=== PATIENT | female | born 1985 | race African-American/Black ===

== ENCOUNTER 2019-12-11 06:46 | Emergency (ER) | payer OTHER ==
[2019-12-11 07:27] VITALS: BP 120/62; PULSE 83; TEMP 97; BMI 45.3
--- NOTE | 2019-12-11 07:57 | PDOC ---
History of Present Illness - General Chief Complaint: ,Possible Stated Complaint: ABD AND VAGINA PAIN Time Seen by Provider: 12/11/19 07:35 History Source: Patient Exam Limitations: Other (psychiatric/developmental delay/poor historian) - History of Present Illness Initial Comments: Pt is a 34 yo F, with PMH of bipolar, developmental delay, prior polysubstance use (cocaine, cannabis), who is presenting with "feeling " and vaginal bleeding x2 days. Pt states she "feels something in my belly," but denies current sexual activity. Pt endorses vaginal bleeding consistent with her normal menstrual cycles, but cannot remember when her LMP was, and she does not take control. Pt denies any fevers/chills, headache, vision changes, syncope, chest pain, palpitations, SOB, nausea/vomiting, abdominal pain, urinary symptoms, diarrhea/constipation, vaginal discharge, or leg swelling. Allergies: NKDA PCP: Dr. Esparza Social: Pt denies any current cigarette, alcohol, or drug use. Pt is currently undomiciled. Pt denies any recent travel or sick contacts. Surgical: no relevant history. Family: no relevant history. 12/11/19 07:52 Past History - Travel History Traveled outside of the country in the last 30 days: No Close contact w/someone who was outside of country & ill: No - Medical History Allergies/Adverse Reactions: Allergies Allergy/AdvReac Type Severity Reaction Status Date / Time peanut Allergy Mild Itching Unverified 12/11/19 07:27 Home Medications: Ambulatory Orders Aripiprazole [Abilify -] 20 mg PO DAILY #30 tablet 06/23/17 Escitalopram Oxalate [Lexapro -] 20 mg PO DAILY #30 tablet 06/23/17 traZODone HCL [Trazodone HCl] 100 mg PO BID #60 tablet 06/23/17 Asthma: Yes COPD: No GI Disorders: Yes (GERD) - Reproductive History Is Patient Now?: (unknown) - Psycho-Social/Smoking History Smoking History: Current every day smoker Have you smoked in the past 12 months: Yes Number of Cigarettes Smoked Daily: 5 Cigars Per Day: 0 Information on smoking cessation initiated: No Review of Systems - Review of Systems Able to Perform ROS?: Yes Is the patient limited Surinamese proficient: No Constitutional: Yes: Weight Stable. No: Chills, Diaphoresis, Fever, Loss of Appetite, Malaise, Weakness HEENTM: No: Recent change in vision, Nose Congestion, Throat Pain, Throat Swelling, Difficulty Swallowing Respiratory: No: Cough, Orthopnea, Shortness of Breath Cardiac (ROS): No: Chest Pain, Edema, Irregular Heart Rate, Lightheadedness, Palpitations, Syncope, Chest Tightness ABD/GI: No: Constipated, Diarrhea, Nausea, Poor Appetite, Poor Fluid Intake, Vomiting, Abdominal cramping : Yes: See HPI. No: Burning, Dysuria, Frequency, Flank Pain, Pain, Urgency Musculoskeletal: No: Back Pain, Joint Pain Integumentary: No: Rash Neurological: No: Headache, Numbness, Weakness, Unsteady Gait, Dizziness Psychiatric: No: Sleep Pattern Change, Change in Appetite Endocrine: No: Increased Urine, Change in Weight Hematologic/Lymphatic: No: Anemia, Blood Clots, Easy Bleeding, Easy Bruising All Other Systems: Reviewed and Negative *Physical Exam - Vital Signs Last Vital Signs Temp Pulse Resp BP Pulse Ox 97 F L 83 18 120/62 99 12/11/19 07:22 12/11/19 07:22 12/11/19 07:22 12/11/19 07:22 12/11/19 07:22 - Physical Exam Vitals stable, pt afebrile. Pt in NAD, morbidly obese body habitus. Pt alert and oriented x3. Pt tangential but redirectable, answers most questions appropriately, but cannot recall more detail oriented answers. Poor insight into medical conditions. wirer street light generally intact, muscular strength and sensation intact. No midline spinal tenderness, step-offs, or crepitus. Head normocephalic, atraumatic. Eyes PERRLA, EOMI. Oropharynx without erythema or exudates, no LAD b/l. No nasal congestion. Hearing intact. Clear heart sounds, S1/S2, no JVD, b/l pedal edema, or heart murmur. Clear lung sounds, no respiratory distress, wheezes, crackles, or accessory muscle use. No abdominal or CVA tenderness to palpation, no rebound, no guarding. Abdomen soft, non-distended, and with normoactive bowel sounds. Skin without jaundice or rash. 12/11/19 07:57 Medical Decision Making - Medical Decision Making Pt was seen at bedside, also will be seen by attending Dr. Alba. Pt presenting requesting test, despite denying current/recent sexual activity. Pt is tangential and easily angered by staff, but is not at imminent risk to self or others. Vaginal bleeding may be at time of normal menstrual cycle. If , will evaluate for vs ectopic. Pt declined any pain control at this time. Will provide vaginal pads for pt. Will continue to reassess pt and monitor for symptomatic improvement. 12/11/19 08:01 test negative. UA without infection. Security on site as pt has been verbally aggressive with multiple staff members and was asked repeatedly to stay with confines of room and wear mask (due to COVID precautions in ER) Pt declined pelvic exam by ER staff. Pt safe for d/c to home with PCP and OB f/u. Symptoms likely 2/2 menstrual cycle. Strict return precautions provided with PCP f/u. 12/11/19 10:16 Discharge - Discharge Information Problems reviewed: Yes Clinical Impression/Diagnosis: Vaginal bleeding, test negative Condition: Stable Disposition: HOME - Admission No - Follow up/Referral Referrals: Ant Esparza MD [Primary Care Provider] - Akua Dunn MD [Staff Physician] - - Patient Discharge Instructions Patient Printed Discharge Instructions: DI for Vaginal Bleeding Additional Instructions: You were seen in the ER today for a test. The results of your labs today showed a negative test and your urine did not have an infection. You did not wish to have a pelvic exam performed by ER staff today. Please follow-up with your primary care doctor and OB-SALES REPRESENTATIVE within 1-2 days to discuss your visit and make sure your symptoms have improved. Please return to the ER if you have any pain, vaginal bleeding that soaks through 1-2 pads per hour, development of fevers or chills, loss of consciousness, inability to tolerate food or fluids, or any other concerns. - Post Discharge Activity
[2019-12-11 08:43] LABS: HCG,QUALITATIVE URINE Negative
[2019-12-11 09:27] LABS: PH,URINE 5.5 (5.0-8.0); URINE APPEARANCE Clear; URINE BILIRUBIN Negative (NEGATIVE); URINE COLOR Yellow; URINE GLUCOSE (UA) Negative (NEGATIVE); URINE KETONE Negative (NEGATIVE); URINE LEUK ESTERASE Negative (NEGATIVE); URINE NITRITE Negative (NEGATIVE); URINE PROTEIN Negative (NEGATIVE); URINE UROBILINOGEN 0.2 mg/dL (0.2-1.0)
--- NOTE | 2019-12-11 09:55 | PDOC ---
Documentation entered by Jayda Huerta SCRIBE, acting as scribe for Stephanie Alba MD. Stpehanie Alba MD: This documentation has been prepared by the Deanna crocker Sydney, SCRIBE, under my direction and personally reviewed by me in its entirety. I confirm that the documentation accurately reflects all work, treatment, procedures, and medical decision making performed by me. Attending Attestation - Resident Resident Name: Celine Pierre - ED Attending Attestation I have performed the following: I have examined & evaluated the patient, The case was reviewed & discussed with the resident, I agree w/resident's findings & plan, Exceptions are as noted - HPI HPI: 12/11/19 08:46 Patient is a 34 year old female with a significant past medical history of bipolar disorder, developmental delay, substance abuse who presents to the ED with two days of baginal bleeding. As per patient, she feels something in her belly and notes vaginal bleeding consistent with her menstrual cycle. Patient reports no current sexual activity, cannot remember her last menstrual period, and is not on control. Denies fevers, chills, headache, chest pain, shortness of breath, nausea, vomiting, or any urinary symptoms. Allergies: NKDA PCP: Dr. Esparza - Physicial Exam PE: 12/11/19 09:17 Agree with resident exam. Patient is alert and oriented and in no acute distres s. She is ambulatory in the ED with normal gait. Abdomen is obese, non tender, non distended. - Medical Decision Making 12/11/19 09:19 Pt presents to the ED requesting test and complaining of "a funny feeling" in her abdomen, although she denies pain. U preg and UA are negative. patient then became tearful and requested serum test. Patient compl ained of vaginal itching to nurse but denied symptoms to resident and refused pelvic exam unless "an OUTREACH LIAISON can be called in emergently". I have explained to the patient at length that these requests are not appropriate, and that she should follow up with her PCP and with [employer] [facility] COUNTER MANAGER. Patient is now requesting discharge home. Will discharge home with instructions to return to the ED for worsening symptoms. 12/11/19 09:48 Discharge - Discharge Information Problems reviewed: Yes Clinical Impression/Diagnosis: Vaginal bleeding, test negative Condition: Stable Disposition: HOME - Follow up/Referral Referrals: Ant Esparza MD [Primary Care Provider] - Akua Dunn MD [Staff Physician] - - Patient Discharge Instructions Patient Printed Discharge Instructions: DI for Vaginal Bleeding Additional Instructions: You were seen in the ER today for a test. The results of your labs today showed a negative test and your urine did not have an infection. You did not wish to have a pelvic exam performed by ER staff today. Please follow-up with your primary care doctor and OB-[employer] SALES COUNTER MANAGER within 1-2 days to discuss your visit and make sure your symptoms have improved. Please return to the ER if you have any pain, vaginal bleeding that soaks through 1-2 pads per hour, development of fevers or chills, loss of consciousness, inability to tolerate food or fluids, or any other concerns. - Post Discharge Activity
== END 2019-12-11 09:46 | disposition home or self-care (01) ==
LOC: JER 06:46
DX: N93.9 Abnormal uterine and vaginal bleeding, unspecified (principal)
CPT/HCPCS: 81003; 84703; 87086; 99284-25